=== PATIENT | male | born 1990 | race Caucasian/White ===

== ENCOUNTER 2017-03-03 16:19 | Emergency (ER) | payer OTHER ==
[~2017-03-03] VITALS: Ht 188 cm; Wt 72.6 kg
[2017-03-03] MEDS ORDERED: NOHOMEMEDICATIONS (16:55)
[2017-03-03 17:20] VITALS: BP 120/74
== END 2017-03-03 17:22 | disposition home or self-care (01) ==
LOC: ER 16:19
DX: B34.9 Viral infection, unspecified (principal)